=== PATIENT | female | born 1940 | race Caucasian/White ===

== ENCOUNTER → 2016-03-11 | Outpatient (CLI) | payer MEDICARE, BC ==
[~2016-03-11] MED LIST: AMLODIPINE10 MG PO; ASPIRIN E.C. 8181 MG PO; NORCO 325 MG-51 TAB PO; VITAMINS
== END ==
LOC: MC.RAD 11:35
DX: Z12.31 Encounter for screening mammogram for malignant neoplasm of breast (principal)

== ENCOUNTER → 2017-04-16 | Outpatient (CLI) | payer MEDICARE, BC | LOC: MC.RAD 11:28 | DX: Z12.31 Encounter for screening mammogram for malignant neoplasm of breast (principal) ==

== ENCOUNTER 2017-06-09 09:01 | Day surgery (SDC) | payer MEDICARE, BC ==
[~2017-06-09] VITALS: Ht 175.3 cm; Wt 80.7 kg
[2017-06-09 09:44] VITALS: BP 152/79; PULSE 110; TEMP 97.6
[2017-06-09] MEDS ORDERED: MULTI VITAMINS1 TAB PO (09:55)
[2017-06-09] MEDS ORDERED: VITAMIN C500 MG PO (09:56)
[2017-06-09] MEDS ORDERED: CALCIUM 600MG+D1 TAB PO (09:56)
[2017-06-09] MEDS ORDERED: MASON NATURAL1200 MG PO (09:58)
[2017-06-09] MEDS ORDERED: TYLENOL 325MG325 MG PO (09:58)
[2017-06-09] MEDS ORDERED: MELATONIN5 M1 SL (09:59)
[2017-06-09 11:42] VITALS: BP 134/70; PULSE 106
[2017-06-09 12:00] VITALS: BP 125/63; PULSE 91
[2017-06-09 12:15] VITALS: BP 119/59; PULSE 83
== END 2017-06-09 12:57 | disposition home or self-care (01) ==
LOC: SDCO 09:01
DX: D12.2 Benign neoplasm of ascending colon (principal); K57.30 Diverticulosis of large intestine without perforation or abscess without bleeding; C18.7 Malignant neoplasm of sigmoid colon; K64.0 First degree hemorrhoids; I10 Essential (primary) hypertension
CPT/HCPCS: OP; J2250; J2405; J3010; J7030

== ENCOUNTER 2017-06-22 10:42 | Inpatient (IN) | payer MEDICARE, BC ==
[~2017-06-22] VITALS: Ht 175.3 cm; Wt 77.8 kg
[~2017-06-22 10:42] MED LIST changes: +CALCIUM 600MG+D1 TAB PO; +MASON NATURAL1200 MG PO; +MELATONIN5 M1 SL; +MULTI VITAMINS1 TAB PO; +TYLENOL 325MG325 MG PO; +VITAMIN C500 MG PO
[2017-06-30] VITALS (11 sets, daily range): BP systolic 97–157; BP diastolic 41–60; PULSE 56–106; TEMP 97.6–97.9
[2017-06-30] MEDS ORDERED: NORVASC 10MG10 MG PO (11:24)
[2017-06-30] MEDS ORDERED: ASPIRIN 81M81 MG/TA2 PO (11:24)
[2017-06-30] MEDS ORDERED: MULTIPLE VITAMI1 CAP PO (11:25)
[2017-06-30] MEDS ORDERED: VITAMIN C500 MG PO (11:25)
[2017-06-30] MEDS ORDERED: CALCIUM 600MG+D1 TAB PO (11:26)
[2017-06-30] MEDS ORDERED: MASON NATURAL1200 MG PO (11:27)
[2017-06-30] MEDS ORDERED: TYLENOL 325MG325 MG PO (11:28)
[2017-06-30] MEDS ORDERED: MELATONIN5 M1 SL (11:28)
[2017-07-01] VITALS (7 sets, daily range): BP systolic 114–128; BP diastolic 53–60; PULSE 59–78; TEMP 97.5–99.1
[2017-07-01 06:51] LABS: HEMATOCRIT 29.8 % (37.0-47.0); HEMOGLOBIN 10.1 g/dl (12.5-16.0)
[2017-07-01 07:04] LABS: CALCIUM 8.6 mg/dL (8.4-10.2); CREATININE, serum 0.56 mg/dL (0.52-1.25)
[2017-07-02 04:03] VITALS: BP 124/56; PULSE 73; TEMP 98.2
[2017-07-02 07:31] VITALS: BP 119/57; PULSE 66; TEMP 98.2
[2017-07-02 11:42] VITALS: BP 131/54; PULSE 77; TEMP 98.1
[2017-07-02 15:28] VITALS: BP 106/71; PULSE 80; TEMP 97.7
[2017-07-02 20:09] VITALS: BP 131/52; PULSE 71; TEMP 98.5
[2017-07-02 23:43] VITALS: BP 134/61; PULSE 69; TEMP 98.1
[2017-07-03 04:01] VITALS: BP 136/61; PULSE 90; TEMP 98.1
[2017-07-03 07:13] VITALS: BP 135/57; PULSE 60; TEMP 98.3
[2017-07-03] MEDS ORDERED: ROXICODONE 55 MG/TAB PO (08:51)
== END 2017-07-03 10:34 | disposition home or self-care (01) | DRG 330 ==
LOC: INPTSU 06-30 10:01 → SURG 06-30 10:01
PROVIDERS: Surgery
PROC: 0DTG4ZZ Resection of Left Large Intestine, Percutaneous Endoscopic Approach (ICD-10-PCS; principal; 2017-06-30 15:00)
DX: C18.6 Malignant neoplasm of descending colon (principal); C77.2 Secondary and unspecified malignant neoplasm of intra-abdominal lymph nodes; I10 Essential (primary) hypertension
CPT/HCPCS: A4314; A9284; J0690; J1100; J1170; J1650; J1885; J2250; J2270; J2405; J3010; J7120

== ENCOUNTER 2017-07-23 08:08 | Day surgery (SDC) | payer MEDICARE, BC ==
[~2017-07-23] VITALS: Ht 175.3 cm; Wt 74.3 kg
[~2017-07-23 08:08] MED LIST changes: +ASPIRIN 81M81 MG/TA2 PO; +MULTIPLE VITAMI1 CAP PO; +NORVASC 10MG10 MG PO; +ROXICODONE 55 MG/TAB PO
[2017-07-23 09:48] VITALS: BP 157/80; PULSE 69; TEMP 97.1
[2017-07-23] MEDS ORDERED: LEXAPRO 10MG10 MG PO (09:58)
[2017-07-23] MEDS ORDERED: XANAX .25M0.25 MG/TA PO (10:01)
[2017-07-23] MEDS ORDERED: AMBIEN 5MG TABLE5 MG PO (10:01)
[2017-07-23] MEDS ORDERED: PROTONIX20 MG PO (10:02)
[2017-07-23] MEDS ORDERED: CARAFATE 1GM1 G PO (10:05)
[2017-07-23 11:40] VITALS: BP 115/55; PULSE 82; TEMP 97.2
[2017-07-23 11:55] VITALS: BP 117/56; PULSE 74
[2017-07-23 12:10] VITALS: BP 127/68; PULSE 77
[2017-07-23 12:25] VITALS: BP 128/53; PULSE 71
== END 2017-07-23 13:10 | disposition home or self-care (01) ==
LOC: SDCO 08:08
DX: C18.6 Malignant neoplasm of descending colon (principal); C77.2 Secondary and unspecified malignant neoplasm of intra-abdominal lymph nodes; I10 Essential (primary) hypertension; Z79.82 Long term (current) use of aspirin; Z90.49 Acquired absence of other specified parts of digestive tract; Z82.49 Family history of ischemic heart disease and other diseases of the circulatory system; Z80.3 Family history of malignant neoplasm of breast
CPT/HCPCS: C1788; J0690; J1644; J2704; J7120

== ENCOUNTER 2017-10-09 23:04 | Emergency (ER) | payer MEDICARE, BC ==
[~2017-10-09] VITALS: Ht 172.7 cm; Wt 71.8 kg
[~2017-10-09 23:04] MED LIST changes: +AMBIEN 5MG TABLE5 MG PO; +CARAFATE 1GM1 G PO; +LEXAPRO 10MG10 MG PO; +PROTONIX20 MG PO; +XANAX .25M0.25 MG/TA PO
[2017-10-09 23:14] VITALS: TEMP 97.8
[2017-10-09 23:44] LABS: MEAN CELL VOLUME 98 fl (80.0-100.0); MEAN CORPUSCULAR HGB CONC 35 g/dl (33.0-37.0); MEAN PLATELET VOLUME 10.3 fl (7.4-10.4); PLATELET COUNT 197 K/mm3 (130-400); RED BLOOD COUNT 2.21 M/mm3 (4.10-5.30); REDCELL DISTRIBUTION WIDTH-CV 15.5 % (11.5-14.5)
[2017-10-09 23:53] LABS: HEMATOCRIT 21.6 % (37.0-47.0); HEMOGLOBIN 7.5 g/dl (12.5-16.0); MEAN CORPUSCULAR HEMOGLOBIN 34 pg (27.0-31.0)
[2017-10-09 23:58] LABS: ALANINE AMINOTRANSFERASE 63 U/L (9-52); ALBUMIN 2.4 gm/dL (3.5-5.0); ALKALINE PHOSPHATASE 86 U/L (50-136); ANION GAP 16 mmol/L (7-16); AST,SGOT 42 U/L (15-37); BILIRUBIN,TOTAL 1.8 mg/dL (0.0-1.0); BLOOD UREA NITROGEN 11 mg/dL (7-17); CALCIUM 8.2 mg/dL (8.4-10.2); CARBON DIOXIDE 15 mmol/L (22-30); CHLORIDE 92 mmol/L (98-107); CREATININE, serum 0.67 mg/dL (0.52-1.25); GLUCOSE 115 mg/dL (74-106); SODIUM 123 mmol/L (137-145); TOTAL PROTEIN 4.8 gm/dL (6.4-8.2)
[2017-10-10 00:04] LABS: LIPASE < 10 U/L (23-300); POTASSIUM 2.9 mmol/L (3.4-5.0)
[2017-10-10 00:06] LABS: TROPONIN-I 0.034 ng/mL (0.000-0.034)
[2017-10-10 00:22] LABS: LYMPHOCYTE 68 % (20.0-51.0); NEUTROPHILS 6 % (42.0-75.2); NUCLEATED RED BLOOD CELL 2 (0-6)
[2017-10-10 00:23] LABS: ANISOCYTOSIS 1+; PLATELET ESTIMATE NORMAL (NORMAL)
[2017-10-10 00:27] LABS: C-REACTIVE PROTEIN 33.6 mg/dL (0.0-0.9)
[2017-10-10 00:55] LABS: COLLECTION METHOD CLEAN CATCH
[2017-10-10 01:06] LABS: MUCOUS Present /lpf; PH 5 (5-8); SQUAMOUS EPITHELIAL 0-2 /hpf; URINE APPEARANCE Hazy; URINE BACTERIA None Seen /hpf; URINE BILIRUBIN Negative (NEGATIVE); URINE BLOOD Negative (NEGATIVE); URINE COLOR Amber; URINE GLUCOSE 2+ (NEGATIVE); URINE KETONE Trace (NEGATIVE); URINE LEUKOCYTE ESTERASE Negative (NEGATIVE); URINE NITRATE Negative (NEGATIVE); URINE PROTEIN(semi-quant) 2+ (NEGATIVE); URINE RBC 0-2 /hpf; URINE UROBILINOGEN Negative (NEGATIVE)
[2017-10-10] MEDS ORDERED: CYMBALTA 60MG60 MG PO (01:28)
[2017-10-10 02:48] VITALS: BP 110/59; PULSE 128
[2017-10-12 08:49] LABS: PATHOLOGY DIFF REVIEW OK
== END 2017-10-10 02:48 | disposition short-term general hospital (02) ==
LOC: COL.ER 23:04
PROVIDERS: Emergency Medicine
DX: E87.2 Acidosis (principal); E87.1 Hypo-osmolality and hyponatremia; E87.6 Hypokalemia; C18.9 Malignant neoplasm of colon, unspecified; I10 Essential (primary) hypertension; Z79.82 Long term (current) use of aspirin
CPT/HCPCS: J0692; J1170; J2405; J3010; J3480; J7030; Q9967